=== PATIENT | female | born 1970 | race Caucasian/White ===

== ENCOUNTER 2019-11-20 14:34 | Emergency (ER) | payer SELFPAY ==
[~2019-11-20] VITALS: Ht 162.6 cm; Wt 61.0 kg
[2019-11-20 14:39] VITALS: BP 111/49
--- NOTE | 2019-11-20 16:52 | NUR ---
HANDLE BENDER: PT AMBULATORY TO ROOM FROM LOBBY WITH STEADY GAIT WITH [employer]
[2019-11-20] MEDS ORDERED: HYDROcodone/APAP 5/325 TABLET ONE (17:15)
[2019-11-20] MEDS ORDERED: HYDROcodone/APAP 5/325 TABLET PO ONE (17:30)
== END 2019-11-20 17:50 | disposition home or self-care (01) ==
LOC: EDBD 14:34 → ED 17:40
DX: S80.01XA Contusion of right knee, initial encounter (principal); S40.022A Contusion of left upper arm, initial encounter; S70.11XA Contusion of right thigh, initial encounter; G89.11 Acute pain due to trauma; X58.XXXA Exposure to other specified factors, initial encounter; Y93.89 Activity, other specified; Y92.89 Other specified places as the place of occurrence of the external cause; Y99.8 Other external cause status
CPT/HCPCS: 99283